=== PATIENT | female | born 1980 | race African-American/Black ===

== ENCOUNTER 2021-01-15 10:19 | Emergency (ER) | payer MEDICAID, OTHER ==
[~2021-01-15] VITALS: Ht 165.1 cm; Wt 80.0 kg
[~2021-01-15 10:19] MED LIST: MEDROXYPROGESTERONE PO; OMEP20CA4 PO
[2021-01-15] MEDS ORDERED: ACETAMINOPHEN 325MG TABLET PO ONE (10:45)
[2021-01-15] MEDS ORDERED: LORAZEPAM 2MG/ML CPJ IV ONE (10:45)
[2021-01-15] MEDS ORDERED: SODIUM CHLORIDE 0.9% 1,000 ML IV ONE (10:45)
[2021-01-15 11:51] LABS: BASOPHILS % 1.1 % (0.0-2.0); CHLORIDE 109 mEq/L (98-107); HEMATOCRIT. 37.5 % (36.0-48.0); HEMOGLOBIN. 12.7 g/dL (12.0-16.0); MEAN CORPUSCULAR HEMOGLOBIN 29.3 pg (28.0-32.0); MEAN CORPUSCULAR VOLUME 86.7 fL (81.0-99.0); MEAN PLATELET VOLUME 9.1 fl (7.4-10.4); MONOCYTES % 9.9 % (2.0-8.0); PLATELET 216 x1000/uL (130-400); RED BLOOD CELL COUNT 4.32 mill/uL (4.2-5.4); RED CELL DISTRIBUTION WIDTH 13.1 % (11.6-14.6)
[2021-01-15] MEDS ORDERED: LIDOCAINE 5% PATCH TOP SCH (12:00)
[2021-01-15] MEDS ORDERED: ACET-2708 MT (12:37)
[2021-01-15] MEDS ORDERED: ALBU6.7H9 INH (12:37)
[2021-01-15] MEDS ORDERED: POTA20TA82 MT (12:37)
[2021-01-15] MEDS ORDERED: POTASSIUM CHLORIDE 20MEQ TABLET SR PO NR (12:45)
[2021-01-15 13:52] VITALS: BP 132/80
== END 2021-01-15 13:56 | disposition home or self-care (01) ==
LOC: ER 10:24
DX: U07.1 COVID-19 (principal); B34.9 Viral infection, unspecified; F43.0 Acute stress reaction; E87.6 Hypokalemia; F12.10 Cannabis abuse, uncomplicated; K21.9 Gastro-esophageal reflux disease without esophagitis; J45.909 Unspecified asthma, uncomplicated; Z13.9 Encounter for screening, unspecified
CPT/HCPCS: 36415; 71045; 80053; 85025; 87426; 96361; 96374; 99284; J2060; J7030